=== PATIENT | female | born 1970 | race Caucasian/White ===

== ENCOUNTER 2016-06-16 10:42 | Inpatient (IN) | payer OTHER ==
[~2016-06-16] VITALS: Ht 170.2 cm; Wt 60.0 kg
[2016-06-16] VITALS (28 sets, daily range): BP systolic 79–104; BP diastolic 46–62; PULSE 52–97; RESP 12–21; Ht 170.2 cm; Wt 60.0 kg
[~2016-06-16 10:42] MED LIST: ALBU8.5H3 INH; CARI350T PO; CEFAZOLIN 2 GM/50 ML (PMX) 50 ML IVPB ONE; CIPR500T4 PO; D5-NS + KCL 20 MEQ 1,000 ML IV SCH; GUAI118L94 PO; metroNIDAZOLE 500 MG/NS (PMX) 100 ML IVPB ONE
[2016-06-16] MEDS ORDERED: THROMBIN 5000 UNIT VIAL ONE (13:01)
[2016-06-16] MEDS ORDERED: METHYLENE BLUE 1% 10 ML INJ ONE (13:01)
[2016-06-16] MEDS ORDERED: VASOPRESSIN 20 UNITS INJ ONE (13:01)
[2016-06-16] MEDS ORDERED: METOCLOPRAMIDE 10 MG INJ ONE (13:02)
[2016-06-16] MEDS ORDERED: PROPOFOL 20 ML ONE (13:02)
[2016-06-16] MEDS ORDERED: ROCURONIUM 50 MG INJ ONE ×2 (13:02→14:20)
[2016-06-16] MEDS ORDERED: MIDAZOLAM 1 MG/ML 2 ML INJ ONE (13:02)
--- NOTE | 2016-06-16 13:09 | HP ---
Date/Time of Note Date/Time of Note DATE: 06/16/16 TIME: 13:08 Assessment/Plan VTE Prophylaxis VTE Prophylaxis Intervention: SCD's Lines/Catheters IV C[facility]ter Type (from [facility] Peripheral IV HPI/ROS Admit Date/Time Admit Date/Time June 16, 2016 at 10:42 Hx of Present Illness Austen Chan M.D. [facility] History and Physical Examination Pallavi Hernandez June 13, 2016 Age: 45 : 1970 Physicians: Communication Specialist: Television Mechanic: Oncologist: Other: History of the Present Illness: This is a 45 y/o female with known fibroids that are symptomatic. Past Medical History: Surgical:none Colonoscopy: never Medical:none Flu no, declined, Pneumococcal no, declined Medical:none Medications: 03/31/16 iron,carbonyl 65 mg-vitamin C 125 mg tablet,delayed release 1 tablet by mouth TID Allergies: 03/31/16 No known allergies (situation) Family History: Noncontributory Social History: Noncontributory Review of Systems: Negative except for above noted Physical Examination Vitals (06/13/2016): Weight 134, Height 66, BP 120/62, BMI 21.6. General: Alert. HEENT: Pupils are equal, round, reactive to light and accommodation. Neck: Supple with no masses of lymphadenopathy. Breast: Deferred due to recent examination and responsibility of primary care physician. Chest: Clear to auscultation and percussion with no rales, ronchi, or wheeze. Heart: Normal rhythm with no murmur. Abdomen: NT no mass Pelvis: 14 week antrior uterus, no adnexal masses NT Rectal: confirmatory with pelvic exam. Neurological: Grossly intact Assessment: probable symptomatic fibroids Plan: LSH/BS. All risks and benefits of this procedure have been discussed in detail with the patient, as well as alternative treatment strategies and their implications. The patient is aware that there is some possibility of a blood transfusion and its associated risks and benefits. She wishes to proceed and gives her informed consent. Austen Chan M.D. PMH/Family/Social Social History Smoking Status: Current some day smoker Exam/Review of Systems Vital Signs Vitals Vital Signs Date Time Temp Pulse Resp B/P Pulse Ox O2 Delivery O2 Flow Rate FiO2 06/16/16 11:55 97.6 97 18 99/58 97 Room Air Medications Medications Current Medications Potassium Chloride/Dextrose/ Sod Cl (D5-NS + KCl 20 Meq) 1,000 ml @ 100 mls/hr Q10H IV ; Start 06/16/16 at 10:30; Stop 06/16/16 at 20:29 AUSTEN CHAN MD June 16, 2016 13:09
--- NOTE | 2016-06-16 13:10 | HPN ---
Date/Time of Note Date/Time of Note DATE: 06/16/16 TIME: 13:09 Interval H&P Admission Note Pt. seen H&P reviewed: No system changes SARA KATE MD June 16, 2016 13:10
[2016-06-16] MEDS ORDERED: morphine SULFATE/PF (10 MG/10 ML) INJ ONE (13:17)
[2016-06-16] MEDS ORDERED: KETOROLAC 30 MG INJ IV PRN ×2 (13:30→16:00)
[2016-06-16] MEDS ORDERED: HYDROCODONE/APAP (5/325) TAB PO PRN (13:30)
[2016-06-16] MEDS ORDERED: CEFAZOLIN 1 GM in SOD CHLORIDE 0.9% 100 ML IVPB SCH (13:30)
[2016-06-16] MEDS ORDERED: ONDANSETRON 4 MG INJ IV PRN ×3 (13:30→16:00)
[2016-06-16] MEDS ORDERED: PHENYLephrine (100 MCG/ML) 5ML SYG ONE (13:43)
[2016-06-16] MEDS ORDERED: CEFAZOLIN 1 GM INJ ONE (14:20)
[2016-06-16] MEDS ORDERED: metroNIDAZOLE 500 MG/NS (PMX) 100 ML IVPB ONE (14:20)
[2016-06-16] MEDS ORDERED: DIPHENHYDRAMINE 50 MG INJ IV PRN ×2 (16:00)
[2016-06-16] MEDS ORDERED: HYDROmorphONE (0.2 MG/ML) 10ML SYG IV PRN ×3 (16:00)
[2016-06-16] MEDS ORDERED: HYDROmorphONE 1 MG/ML SYG IV PRN ×2 (16:00)
[2016-06-16] MEDS ORDERED: MEPERIDINE 25 MG INJ IV PRN (16:00)
[2016-06-16] MEDS ORDERED: NALOXONE (0.4 MG/ML) INJ IV PRN (16:00)
[2016-06-16] MEDS ORDERED: METOCLOPRAMIDE 10 MG INJ IV PRN (16:00)
[2016-06-16] MEDS ORDERED: GLYCOPYRROLATE 1 MG INJ ONE (16:08)
[2016-06-16] MEDS ORDERED: NEOSTIGMINE 3 MG/3 ML SYRINGE ONE (16:08)
[2016-06-16] MEDS ORDERED: KETOROLAC 30 MG INJ ONE (16:08)
[2016-06-16] MEDS ORDERED: ONDANSETRON 4 MG INJ ONE (16:21)
[2016-06-16 17:09] LABS: ADD SCAN DIFF NO
[2016-06-16 17:10] LABS: BASOPHIL # 0.1 10^3/ul (0.0-0.1); BASOPHILS % 0.6 % (0.0-2.0); EOSINOPHILS # 0.1 10^3/ul (0.0-0.5); EOSINOPHILS % 0.7 % (0.0-7.0); HEMATOCRIT 30.4 % (37.0-47.0); HEMOGLOBIN 8.9 g/dl (12.0-16.0); LYMPHOCYTES # 2.1 10^3/ul (0.8-2.9); LYMPHOCYTES % 22.4 % (15.0-51.0); MEAN CORPUSCULAR HEMOGLOBIN 22.3 pg (29.0-33.0); MEAN CORPUSCULAR HGB CONC 29.3 g/dl (32.0-37.0); MONOCYTE # 0.7 10^3/ul (0.3-0.9); MONOCYTES % 7.7 % (0.0-11.0); NEUTROPHIL # 6.5 10^3/ul (1.6-7.5); NEUTROPHILS % 68.3 % (39.0-77.0); PLATELET COUNT 397 10^3/UL (140-415); RED CELL DISTRIBUTION WIDTH 21.3 % (11.5-14.5); WHITE BLOOD COUNT 9.5 10^3/ul (4.8-10.8)
[2016-06-16] MEDS: CEFAZOLIN 1 GM/50 ML (PMX) 50 ML IVPB SCH ×2 (17:41→21:32)
[2016-06-16 18:06] LABS: CALCIUM 8.2 mg/dl (8.4-10.2); CREATININE 0.51 mg/dl (0.44-1.00); POTASSIUM 3.3 mmol/L (3.5-5.1)
[2016-06-16 18:47] LABS: URINE BILIRUBIN (Dip) NEGATIVE (NEGATIVE); URINE BLOOD (Dip) NEGATIVE (NEGATIVE); URINE COLOR YELLOW (YELLOW); URINE GLUCOSE (Dip) NEGATIVE (NEGATIVE); URINE KETONES (Dip) 40 (NEGATIVE); URINE LEUKOCYTE ESTERASE (Dip) NEGATIVE (NEGATIVE); URINE NITRITE (Dip) NEGATIVE (NEGATIVE); URINE UROBILINOGEN (Dip) 0.2 E.U./dL (0.1-1.0)
[2016-06-16 19:15] LABS: ADD UMIC NO; SQUAMOUS EPITHELIAL CELL,UR FEW; URINE RBCS 0-2 /HPF (0); URINE TOTAL PROTEIN (Dip) NEGATIVE (NEGATIVE)
[2016-06-16 19:16] LABS: MUCUS,URINE FEW
[2016-06-16] MEDS: FAMOTIDINE 20 MG INJ IV SCH (21:31)
[2016-06-16] MEDS: POTASSIUM CHLORIDE 20 MEQ in LACTATED RINGER'S 1,000 ML IV SCH ×2 (21:32→23:21)
[2016-06-17 00:32] VITALS: BP 114/67; RESP 18
[2016-06-17] MEDS: HYDROmorphONE 1 MG/ML SYG IV PRN ×2 (01:34→08:59)
[2016-06-17] MEDS: CEFAZOLIN 1 GM/50 ML (PMX) 50 ML IVPB SCH (05:23)
[2016-06-17] MEDS: morphine 2 MG INJ IV PRN ×2 (05:46→18:47)
[2016-06-17 06:23] LABS: ADD SCAN DIFF NO
[2016-06-17 06:28] LABS: ABNORMAL IP MESSAGE 1; BASOPHILS % 0.3 % (0.0-2.0); EOSINOPHILS # 0.1 10^3/ul (0.0-0.5); EOSINOPHILS % 0.8 % (0.0-7.0); HEMATOCRIT 31.6 % (37.0-47.0); LYMPHOCYTES # 1.6 10^3/ul (0.8-2.9); LYMPHOCYTES % 16.4 % (15.0-51.0); MEAN CORPUSCULAR HGB CONC 28.5 g/dl (32.0-37.0); MEAN CORPUSCULAR VOLUME 77.1 fl (82.0-101.0); MEAN PLATELET VOLUME 9.7 fl (7.4-10.4); MONOCYTE # 0.7 10^3/ul (0.3-0.9); MONOCYTES % 6.9 % (0.0-11.0); NEUTROPHIL # 7.5 10^3/ul (1.6-7.5); NEUTROPHILS % 75.3 % (39.0-77.0); PLATELET COUNT 396 10^3/UL (140-415); RED CELL DISTRIBUTION WIDTH 21.7 % (11.5-14.5)
[2016-06-17 07:05] LABS: ALBUMIN 2.9 g/dl (3.3-4.9)
[2016-06-17 07:06] LABS: POTASSIUM 3.6 mmol/L (3.5-5.1)
[2016-06-17 07:08] LABS: BILIRUBIN,INDIRECT 0.3 mg/dl (0-1.1); BILIRUBIN,TOTAL 0.3 mg/dl (0.2-1.3); CREATININE 0.55 mg/dl (0.44-1.00)
[2016-06-17 07:09] LABS: ALBUMIN/GLOBULIN RATIO 1.07; CALCIUM 8.4 mg/dl (8.4-10.2); TOTAL PROTEIN 5.6 g/dl (6.1-8.1)
[2016-06-17 07:20] LABS: INR 1.06; PROTIME 13.8 Sec (12.2-14.2); PT RATIO 1.1
[2016-06-17 07:53] VITALS: BP 111/66; RESP 18
[2016-06-17] MEDS: FAMOTIDINE 20 MG INJ IV SCH ×2 (08:58→20:52)
[2016-06-17] MEDS: POTASSIUM CHLORIDE 20 MEQ in LACTATED RINGER'S 1,000 ML IV SCH ×2 (08:58→20:52)
--- NOTE | 2016-06-17 10:57 | PN ---
Date/Time of Note Date/Time of Note DATE: 06/17/16 TIME: 10:55 Assessment/Plan VTE Prophylaxis VTE Prophylaxis Intervention: ambulation Lines/Catheters IV Catheter Type (from Nrsg): Peripheral IV Urinary Cath still in place: Yes Subjective 24 Hr Interval Summary Free Text/Dictation Anesthesia Note: A 45 year female s/p lap hysterectomy under GA and spinal, pod #1 doing fine pain is controled, no n/v, itching,headache, back pain, back is clen Exam/Review of Systems Vital Signs Vitals Vital Signs Date Time Temp Pulse Resp B/P Pulse Ox O2 Delivery O2 Flow Rate FiO2 06/17/16 07:53 98.7 60 18 111/66 99 06/16/16 18:50 Nasal Cannula Intake and Output 06/16/16 06/16/16 06/17/16 15:00 23:00 07:00 Intake Total 1850 ml 1150 ml Output Total 550 ml 250 ml Balance 1300 ml 900 ml Results Result Diagram: 06/17/16 0535 06/17/16 0535 Results 24 hrs Laboratory Tests Test 06/16/16 17:04 06/16/16 18:20 06/17/16 05:35 White Blood Count 9.5 10.0 Red Blood Count 4.00 L 4.10 L Hemoglobin 8.9 L 9.0 L Hematocrit 30.4 L 31.6 L Mean Corpuscular Volume 76.0 L 77.1 L Mean Corpuscular Hemoglobin 22.3 L 22.0 L Mean Corpuscular Hemoglobin Concent 29.3 L 28.5 L Red Cell Distribution Width 21.3 H 21.7 H Platelet Count 397 396 Mean Platelet Volume 9.0 9.7 Neutrophils % 68.3 75.3 Lymphocytes % 22.4 16.4 Monocytes % 7.7 6.9 Eosinophils % 0.7 0.8 Basophils % 0.6 0.3 Nucleated Red Blood Cells % 0.0 0.0 Neutrophils # 6.5 7.5 Lymphocytes # 2.1 1.6 Monocytes # 0.7 0.7 Eosinophils # 0.1 0.1 Basophils # 0.1 0.0 Nucleated Red Blood Cells # 0.0 0.0 Sodium Level 135 139 Potassium Level 3.3 L 3.6 Chloride Level 107 105 Carbon Dioxide Level 23 25 Anion Gap 8 13 Blood Urea Nitrogen 11 10 Creatinine 0.51 0.55 Glucose Level 99 85 Calcium Level 8.2 L 8.4 Urine Color YELLOW Urine Clarity CLEAR Urine pH 5.5 Urine Specific [place] >=1.030 H Urine Ketones 40 Urine Nitrite NEGATIVE Urine Bilirubin NEGATIVE Urine Urobilinogen 0.2 E.U./dL Urine Leukocyte Esterase NEGATIVE Urine Microscopic RBC 0-2 Urine Microscopic WBC 0-2 Urine Squamous Epithelial Cells FEW Urine Mucus FEW Urine Hemoglobin NEGATIVE Urine Glucose NEGATIVE Urine Total Protein NEGATIVE Prothrombin Time 13.8 Prothrombin Time Ratio 1.1 INR International Normalized Ratio 1.06 Total Bilirubin 0.3 Direct Bilirubin 0.00 Indirect Bilirubin 0.3 Aspartate Amino Transf (AST/SGOT) 20 Alanine Aminotransferase (ALT/SGPT) 23 Alkaline Phosphatase 48 Total Protein 5.6 L Albumin 2.9 L Globulin 2.70 Albumin/Globulin Ratio 1.07 Medications Medications Current Medications Acetaminophen/ Hydrocodone Bitart ([place] (5/325)) 1 tab Q6H PRN PO PAIN LEVEL 6 -10; Start 06/16/16 at 13:30 Famotidine 20 mg 20 mg Q12 IV Last administered on 06/17/16 08:58; Admin Dose 20 MG; Start 06/16/16 at 21:00 Potassium Chloride/Lactated Ringer's (KCl/Lr) 1,010 ml @ 100 mls/hr Q10H6M IV Last administered on 06/17/16 08:58; Admin Dose 100 MLS/HR; Start 06/16/16 at 13: 15 Naloxone HCl (Narcan) 0.1 mg Q2M PRN IV FOR RESP RATE 8 OR LESS; Start 06/16/16 at 16:00; Stop 06/17/16 at 15:59 Ketorolac Tromethamine (Toradol) 30 mg Q6H PRN IV PAIN; Start 06/16/16 at 16:00 ; Stop 06/17/16 at 15:59 Hydromorphone HCl (Dilaudid) 1 mg Q3H PRN IV BREAKTHROUGH PAIN Last administered on 06/17/16 08:59; Admin Dose 1 MG; Start 06/16/16 at 16:00; Stop at 15:59 Hydromorphone HCl (Dilaudid) 0.2 mg Q3H PRN IV PAIN LEVEL 1-5; Start 06/16/16 at 16:00; Stop 06/17/16 at 15:59 Hydromorphone HCl (Dilaudid) 0.4 mg Q3H PRN IV PAIN LEVEL 6-10; Start 06/16/16 at 16:00; Stop 06/17/16 at 15:59 Diphenhydramine HCl (Benadryl) 25 mg Q6H PRN IV ITCHING; Start 06/16/16 at 16:00 ; Stop 06/17/16 at 15:59 Ondansetron HCl (Zofran Inj) 4 mg Q6H PRN IV NAUSEA AND/OR VOMITING Last administered on 06/17/16t 05:46; Admin Dose 4 MG; Start 06/16/16 at 16:00; Stop at 15:59 ERWIN GRIFFIN MD June 17, 2016 10:57
[2016-06-17] MEDS: LORAZEPAM 0.5 MG TAB PO PRN (13:45)
[2016-06-17] MEDS: KETOROLAC 15 MG INJ IV PRN ×2 (13:46→20:52)
--- NOTE | 2016-06-17 15:37 | CONS ---
DATE OF ADMISSION: 06/16/2016 DATE OF CONSULTATION: HISTORY OF PRESENT ILLNESS: The patient is a 45-year-old female with history of symptomatic uterine fibroid and chronic lower back pain. The patient was taking [place] and [place] for her back pain. The patient has not had any surgical intervention for her back pain. The patient was seen by Dr. Richard foley as an outpatient for symptomatic fibroid. The patient was brought into hospital on 06/16/2016 a nd underwent laparoscopic hysterectomy and bilateral salpingectomy. The patient, postoperatively, w as complaining of headache as well as becoming emotional after surgery. The patient is fearful when ever she wakes up. The patient denied any previous known history of psychiatric disorder. No repor sabi fever or chills. No reported chest pain or shortness of breath. The patient did not have any v omiting. No focal neurological symptoms. The patient did have postoperative pain. REVIEW OF SYSTEMS: The rest of review of systems was unremarkable. PAST MEDICAL HISTORY: As stated above. ALLERGIES: NONE. SOCIAL HISTORY: The patient smokes a pack a day. FAMILY HISTORY: Noncontributory. PHYSICAL EXAMINATION: GENERAL: The patient is conscious, awake, alert. VITAL SIGNS: Temperature 98.7, pulse 60, respirations 18, blood pressure 111/66, O2 saturation 99% on room air. HEENT: Atraumatic, normocephalic. Conjunctivae and lids normal. Oropharynx clear. NECK: No mass. LUNGS: Clear. CARDIOVASCULAR: S1, S2 normal. No murmur. ABDOMEN: Soft. EXTREMITIES: No leg edema. Pedal pulses palpable. SKIN: Without rash. NEUROLOGIC: The patient is awake, alert with no gross focal deficit. LABORATORY DATA: On the day of admission, WBC 9.5, hemoglobin 8.9, platelets 397. Sodium 139, pota ssium 3.6, BUN 10, creatinine 8.5. Liver enzymes normal. IMPRESSION: 1. Symptomatic uterine fibroids status post laparoscopic hysterectomy and bilateral salpingectomy. 2. Chronic lower back pain. 3. Situational anxiety. PLAN: The patient admitted on medical floor. The patient has been started on clear liquid diet whi ch has been advanced to full liquid. I will give her IV Toradol for her headache. The patient norm ally drinks 2 to 3 cups of coffee a day and probably has headache due to caffeine withdrawal. The p atient also has situational anxiety. We will treat her with Ativan on p.r.n. basis. We will contin ue SCDs for DVT prophylaxis. The patient does have anemia. We will add iron. Further recommendati ons will depend on patient's hospital course and recommendation from Dr. Chan. We will continue to follow. Dictated By: TO DÍAZ/ERNIE Conf#: [id number] DID#: [id number]
[2016-06-17 20:00] VITALS: BP 118/75; RESP 20
--- NOTE | 2016-06-17 21:46 | OPR ---
Date/Time of Note Date/Time of Note DATE: 06/17/16 TIME: 21:45 Operative Report Free Text/Dictation 4 OPERATIVE REPORT [facility] Name: Pallavi Hernandez Medical Date: 06/16/16 Preoperative Diagnosis: Menorrhagia with uterine enlargement; fibroids a/o adenomyosis Postoperative Diagnosis: 1- Probable adenomyosis 2- Multiple fibroids 3- Ureteral stricture 4- Endometriosis Procedures: 1- Laparoscopic subtotal hysterectomy and bilateral salpingectomy 2- Bilateral ureteral dissection with repositioning 3- Retroperitoneal uterine artery ligation Surgeon: Dr. Chan Clerical Aide Teacher: Dr. Kyle Anesthesia: General with regional Indikation for Procedure: The patient is a 45- year old female with a large symptomatic pelvic mass consistent with symptomatic fibroids and/or adenomyosis. After considering all options with risks and benefits a laproscopic supracervical hysterectomy with bilateral salpingectomy and possible total laparoscopic hysterectomy was chosen with possible staging. Findings and Summary The patient was laparoscoped and found to have a large hypervascular fibroids that were distorting the retroperitoneal anatomy significantly with anatomy precluding access to the lower uterine segment vessels. Therefore it was necessary to open the Name: Pallavi Hernandez Medical retroperitoneum bilaterally and dissect and reposition the ureters bilaterally for the purposes of access to the lower uterine segment and the vasculature. Due to additional anatomic distortion by the enlarged uterus and hypervascularity and aforementioned anatomy precluding access to the lower uterine segment vessels the uterine arteries were clipped bilaterally immediately distal to the branching of the hypogastrics. Additionally cul-de- sac endometriosis was ablated and biopsied The laparoscopic supracervical hysterectomy was then completed with morcellation without incident thru a minilaparotomy. Procedure: After being prepped and draped in the usual manner an EEA sizer and pneumo- occluder was inserted vaginally. A 5-millimeter trocar was then placed immediately cephlad to the umbilicus without incident. Subsequently, we insufflated and placed two 5 millimeter trocars laterally and a 12 millimeter trocar suprapubically. At this time any pelvic adhesions were lysed with sharp dissection. Subsequently we explored and noted the adnexia to be grossly within normal limits in appearance but there was significant uterine enlargement from probable fibroids and adenomyosis and hypervascularity, all distorting the retroperitoneal anatomy significantly, about 14-16 week in size, all necessitating a ureteral dissection with repositioning. Initially the right round ligament was transected with the Gyrus biopolar Cutting Forceps and the retroperitoneal spaced opened parallel to the IP ligament and laterally with the same devise and Omni. The ureter was identified and because of the fibroids and some adjacent endometriois required a specific dissection and repositioning. The ureter was bluntly dissected away from the enlarged uterus and broad ligament with an Omni, and carefully repositioned lateral to the broad ligament. Additionally, there was broad ligament endometriosis that mandated additional ureteral dissection with repositioning away from the endometriosis, after which some was biopsied with sharp dissection and the remainder of the lesion was ablated with the argon beam tallow refiner. Because of some oozing and because the anatomy of the uterus with anatomy precluding access to Name: Pallavi [facility] the lower uterine segment vessels due to fibroids and resulting in displacement of the vessels laterally it mandated that we isolate the uterine artery and vein adjacent to the ureter that was lateralized to the level of the hypogastric artery using the endo-dissector and Omni for hemostasis with the previously dissected ureter visualized. Therefore in this case the uterine artery was hemoclipped immediately distal to the branching of the hypogastric and at the bifurcation of the hypogastric, proximal to the branching of the uterine and obliterated umbilical; salvaging both observed superior and inferior vesicle while controlling the entire uterine with associated collateral branches. At this time the right salpingectomy was completed with the Omni to removed the tube from the mesentery after which the right triple pedicle was desiccated and transected with the Omni and Thunderbeat. Subsequently, the left round ligament was transected with a Gyrus bipolar cutting forceps and the retroperitoneum opened parallel to the infundibulo- pelvic (IP) ligament with a Gyrus bipolar cutting forceps and Omni. The ureteral dissection with repositioning was undertaken. The ureter was dissected away from the peritoneum with adjacent uterus and repositioned with care using the endo-dissector and Gyrus bipolar cutting forceps and Omni bluntly, again with the dissection being somewhat required due to some distortion of the retroperitoneum by the large uterus with fibroids. This process was carried out throughout the ureteral length in the pelvis and it peristalsed normally once repositioned. Again, because of hypervascularity and because the anatomy of the mass resulted in displacement of the vessels laterally with anatomy precluding access to the lower uterine segment vessels, it mandated that we isolate the uterine artery and vein adjacent to the ureter that was lateralized to the level of the hypogastric artery using the endo-dissector and Omni for hemostasis with the previously dissected ureter visualized. Therefore in this case the uterine artery was hemoclipped immediately distal to the branching of the hypogastric and at the bifurcation of the hypogastric, proximal to the branching of the uterine and obliterated umbilical; salvaging both observed superior and inferior vesicle while controlling the entire uterine with associated collateral branches. At this time the left fallopian tube was removed from the associate mesentery with the Thunderbeat and the triple pedicle Name: Pallavi [facility] was desiccated and transected with the Thunderbeat. At this time a corkscrew was placed in the aforementioned fibroids and the mass dissected away from the areolar tissue and ureter as well as vascular structures in the retroperitoneum with the endo-dissector and Omni in not near thermal sensitive structures. We then used a cork screw manipulator placed through the 12-mm suprapubic trocar to manipulate the uterus allowing development or the bladder flap uneventfully with the Gyrus Cutting Forceps and Omni and blunt dissection. The right uterine artery was transected with a Thunderbeat perpendicular to the distal lower uterine segment and the Cardinal ligament and utero-sacral ligament were both transected with a Thunderbeat parallel to the lower uterine segment and cervix via the contralateral trocar site. An identical series of steps were taken on the left side. Hence, the uterus was removed from the cervix with the Thunderbeat and hemostasis confirmed with additional hemostasis accomplished with the argon ochoa tallow refiner and Omni. The cervix and the endocervical canal were thoroughly ablated with the argon beam tallow refiner. The uterus was then removed with the uterine morcellator. After irrigating and assuring hemostasis the 12 millimeter trocar was removed and the fascia was closed with 0-vicryl using an endo-close devise. The 12-millimeter trocar site was minimally extended to 3-4 cm midline to a minilaparotomy with sharp dissection and an electrocautery and uterus was then placed in large sac and removed with the tubes removed separately, with all tissue accounted for. The incision was partly closed with interrupted 0- Vicryl suture, after which the 12 -millimeter trocar was reinserted. With irrigation hemostasis was confirmed and gas was removed and the 12-millimeter trocar was closed with 0- Vicryl suture with the endo-close and the deep layer of skin with interrupted 3-0 Vicryl suture. The skin of all sites then closed with 4-0 Monocryl suture subcutaneously. The EBL was 50- cc and the patient tolerated the procedure well and left the OR in good condition. Austen Chan M.D. AUSTEN CHAN MD June 17, 2016 21:46
--- NOTE | 2016-06-17 21:52 | PN ---
Date/Time of Note Date/Time of Note DATE: 06/17/16 TIME: 21:49 Assessment/Plan VTE Prophylaxis VTE Prophylaxis Intervention: ambulation, anti-embolic stocking, SCD's Lines/Catheters IV Catheter Type (from Nrs): Peripheral IV Urinary Cath still in place: No Assessment/Plan Chief Complaint/Hosp Course Fibroids, adenomyosis and endometriosis Problems: Assessment/Plan OOB and reassured patient emotionally. Anticipate d/c later today or a.m. Subjective 24 Hr Interval Summary Free Text/Dictation OOB and kaylee diet but anxious; very anxious. Exam/Review of Systems Vital Signs Vitals Vital Signs Date Time Temp Pulse Resp B/P Pulse Ox O2 Delivery O2 Flow Rate FiO2 06/17/16 20:00 98.6 91 20 118/75 98 06/16/16 18:50 Nasal Cannula Intake and Output 06/16/16 06/16/16 06/17/16 15:00 23:00 07:00 Intake Total 1850 ml 1150 ml Output Total 550 ml 250 ml Balance 1300 ml 900 ml Exam Respiratory: clear to auscultation, normal air movement Cardiovascular: nl pulses, regular rate and rhythm Extremities: normal pulses Results Result Diagram: 06/17/16 0535 06/17/16 0535 Results 24 hrs Laboratory Tests Test 06/17/16 05:35 White Blood Count 10.0 Red Blood Count 4.10 L Hemoglobin 9.0 L Hematocrit 31.6 L Mean Corpuscular Volume 77.1 L Mean Corpuscular Hemoglobin 22.0 L Mean Corpuscular Hemoglobin Concent 28.5 L Red Cell Distribution Width 21.7 H Platelet Count 396 Mean Platelet Volume 9.7 Neutrophils % 75.3 Lymphocytes % 16.4 Monocytes % 6.9 Eosinophils % 0.8 Basophils % 0.3 Nucleated Red Blood Cells % 0.0 Neutrophils # 7.5 Lymphocytes # 1.6 Monocytes # 0.7 Eosinophils # 0.1 Basophils # 0.0 Nucleated Red Blood Cells # 0.0 Prothrombin Time 13.8 Prothrombin Time Ratio 1.1 INR International Normalized Ratio 1.06 Sodium Level 139 Potassium Level 3.6 Chloride Level 105 Carbon Dioxide Level 25 Anion Gap 13 Blood Urea Nitrogen 10 Creatinine 0.55 Glucose Level 85 Calcium Level 8.4 Total Bilirubin 0.3 Direct Bilirubin 0.00 Indirect Bilirubin 0.3 Aspartate Amino Transf (AST/SGOT) 20 Alanine Aminotransferase (ALT/SGPT) 23 Alkaline Phosphatase 48 Total Protein 5.6 L Albumin 2.9 L Globulin 2.70 Albumin/Globulin Ratio 1.07 Medications Medications Current Medications Acetaminophen/ Hydrocodone Bitart ([place] (5/325)) 1 tab Q6H PRN PO PAIN LEVEL 6 -10; Start 06/16/16 at 13:30 Famotidine 20 mg 20 mg Q12 IV Last administered on 06/17/16 20:52; Admin Dose 20 MG; Start 06/16/16 at 21:00 Potassium Chloride/Lactated Ringer's (KCl/Lr) 1,010 ml @ 100 mls/hr Q10H6M IV Last administered on 06/17/16 20:52; Admin Dose 100 MLS/HR; Start 06/16/16 at 13: 15 Lorazepam (Ativan) 0.5 mg Q8H PRN PO ANXIETY Last administered on 06/17/16 13: 45; Admin Dose 0.5 MG; Start 06/17/16 at 14:00 Ketorolac Tromethamine (Toradol) 15 mg Q6H PRN IV PAIN Last administered on 06/17 20:52; Admin Dose 15 MG; Start 06/17/16 at 14:00; Stop 06/20/16 at 13:59 SARA KATE MD June 17, 2016 21:52
[2016-06-18] MEDS: morphine 2 MG INJ IV PRN ×2 (00:48→04:38)
[2016-06-18] MEDS: LORAZEPAM 0.5 MG TAB PO PRN (06:45)
[2016-06-18 07:48] VITALS: BP 114/69; RESP 18
[2016-06-18 09:26] LABS: ADD UMIC NO; URINE BILIRUBIN (Dip) NEGATIVE (NEGATIVE); URINE BLOOD (Dip) NEGATIVE (NEGATIVE); URINE COLOR LT. YELLOW (YELLOW); URINE GLUCOSE (Dip) NEGATIVE (NEGATIVE); URINE KETONES (Dip) NEGATIVE (NEGATIVE); URINE LEUKOCYTE ESTERASE (Dip) NEGATIVE (NEGATIVE); URINE NITRITE (Dip) NEGATIVE (NEGATIVE); URINE TOTAL PROTEIN (Dip) NEGATIVE (NEGATIVE); URINE UROBILINOGEN (Dip) 0.2 E.U./dL (0.1-1.0)
--- NOTE | 2016-06-18 10:28 | PN ---
Date/Time of Note Date/Time of Note DATE: 06/18/16 TIME: 10:23 Assessment/Plan VTE Prophylaxis VTE Prophylaxis Intervention: SCD's Lines/Catheters IV Catheter Type (from Nrs): Peripheral IV Urinary Cath still in place: No Assessment/Plan Assessment/Plan 1. Symptomatic uterine fibroids status post laparoscopic hysterectomy and bilateral salpingectomy. - per surgery - full liquid 2. Chronic lower back pain. 3. Situational anxiety-Ativan on p.r.n. basis. 4. Anemia - cont on iron. H/H- 9.0/31.6 4. SCDs for DVT prophylaxis. Further recommendations will depend on patient's hospital course and recommendation from Dr. Chan. Continue to follow. Plan of care dw dr Salazar/staff Subjective 24 Hr Interval Summary Free Text/Dictation sleeping, easily awakens, afebrile, uses pain med frequently, feels better, dw staff Eyes: no complaints ENT: no complaints Respiratory: no complaints Cardiovascular: no complaints Gastrointestinal: no complaints Genitourinary: other (POST OP PAIN) Musculoskeletal: no complaints Skin: no complaints Neurologic: no complaints Psychological: no complaints Immunologic: no complaints Exam/Review of Systems Vital Signs Vitals Vital Signs Date Time Temp Pulse Resp B/P Pulse Ox O2 Delivery O2 Flow Rate FiO2 06/18/16 07:48 98.6 94 18 114/69 96 06/16/16 18:50 Nasal Cannula Intake and Output 06/17/16 06/17/16 06/18/16 15:00 23:00 07:00 Intake Total 310 ml 1970 ml 900 ml Output Total 1600 ml 1900 ml Balance 310 ml 370 ml -1000 ml Exam Constitutional: alert, oriented, well developed Psych: no complaints Head: atraumatic Eyes: EOMI, nl sclera ENMT: nl external ears & nose Neck: non-tender Respiratory: clear to auscultation Cardiovascular: nl pulses Gastrointestinal: non-tender, soft Musculoskeletal: nl extremities to inspection Extremities: normal pulses Neurological: nl mental status, nl speech Skin: other Lymph: nontender Results Result Diagram: 06/17/16 0535 06/17/16 0535 Results 24 hrs Laboratory Tests Test 06/18/16 04:00 Urine Color LT. YELLOW Urine Clarity CLEAR Urine pH 7.0 Urine Specific [place] <=1.005 L Urine Ketones NEGATIVE Urine Nitrite NEGATIVE Urine Bilirubin NEGATIVE Urine Urobilinogen 0.2 E.U./dL Urine Leukocyte Esterase NEGATIVE Urine Hemoglobin NEGATIVE Urine Glucose NEGATIVE Urine Total Protein NEGATIVE Medications Medications Current Medications Acetaminophen/ Hydrocodone Bitart ([place] (5)) 1 tab Q6H PRN PO PAIN LEVEL 6 -10 Last administered on 06/18/16 05:39; Admin Dose 1 TAB; Start 06/16/16 at 13: 30 Famotidine 20 mg 20 mg Q12 IV Last administered on 06/17/16 20:52; Admin Dose 20 MG; Start 06/16/16 at 21:00 Potassium Chloride/Lactated Ringer's (KCl/Lr) 1,010 ml @ 20 mls/hr Q24H IV Last administered on 06/17/16 20:52; Admin Dose 100 MLS/HR; Start 06/16/16 at 13: 15 Lorazepam (Ativan) 0.5 mg Q8H PRN PO ANXIETY Last administered on 06/18/16 06: 45; Admin Dose 0.5 MG; Start 06/17/16 at 14:00 Ketorolac Tromethamine (Toradol) 15 mg Q6H PRN IV PAIN Last administered on 06/17 20:52; Admin Dose 15 MG; Start 06/17/16 at 14:00; Stop 06/20/16 at 13:59 DARION MACK June 18, 2016 10:28
[2016-06-18] MEDS: FAMOTIDINE 20 MG INJ IV SCH (10:41)
[2016-06-18] MEDS ORDERED: DOCUSATE SODIUM 100 MG CAP PO SCH (11:30)
--- NOTE | 2016-06-18 13:58 | PDOCDIS ---
Discharge Instructions CONDITION Patient Condition: Stable HOME CARE INSTRUCTIONS: [facility] FOLLOW UP/APPOINTMENTS Appointments FU with PMD X [address] Galvin as recommended. call 911 or go to the nearest hospital if symptoms get worse. DARION MACK June 18, 2016 13:58
--- NOTE | 2016-06-18 14:07 | DS ---
Date/Time of Note Date/Time of Note DATE: 06/18/16 TIME: 14:07 Discharge Summary Admission/Discharge Info Admit Date/Time June 16, 2016 at 10:42 Discharge Date/Time Hx of Present Illness Austen Chan M.D. [facility] History and Physical Examination Pallavi Hernandez June 13, 2016 Age: 45 : 1970 Physicians: Community Service Coordinator: Repossession Agent: Oncologist: Other: History of the Present Illness: This is a 45 y/o female with known fibroids that are symptomatic. Past Medical History: Surgical:none Colonoscopy: never Medical:none Flu no, declined, Pneumococcal no, declined Medical:none Medications: 03/31/16 iron,carbonyl 65 mg-vitamin C 125 mg tablet,delayed release 1 tablet by mouth TID Allergies: 03/31/16 No known allergies (situation) Family History: Noncontributory Social History: Noncontributory Review of Systems: Negative except for above noted Physical Examination Vitals (06/13/2016): Weight 134, Height 66, BP 120/62, BMI 21.6. General: Alert. HEENT: Pupils are equal, round, reactive to light and accommodation. Neck: Supple with no masses of lymphadenopathy. Breast: Deferred due to recent examination and responsibility of primary care physician. Chest: Clear to auscultation and percussion with no rales, ronchi, or wheeze. Heart: Normal rhythm with no murmur. Abdomen: NT no mass Pelvis: 14 week antrior uterus, no adnexal masses NT Rectal: confirmatory with pelvic exam. Neurological: Grossly intact Assessment: probable symptomatic fibroids Plan: LSH/BS. All risks and benefits of this procedure have been discussed in detail with the patient, as well as alternative treatment strategies and their implications. The patient is aware that there is some possibility of a blood transfusion and its associated risks and benefits. She wishes to proceed and gives her informed consent. Austen Chan M.D. Hospital Course Fibroids, adenomyosis and endometriosis Home Meds Active Scripts Ciprofloxacin Hcl* (Ciprofloxacin Hcl*) 500 Mg Tablet, 500 MG PO BID for 7 Days , TAB Prov:LANDY HO NP 4/20/16 Guaifenesin-Codeine Phosphate* (Guaifenesin* with Codeine Liq) 120 Ml Liquid, 5 ML PO Q4H for COUGH, #60 ML Prov:LANDY HO FREELANCE COURT REPORTER 06/03/15 Albuterol Sulfate* (Proair HFA*) 8.5 Gm Hfa.aer.ad, 2 PUFF INH Q4H Y for WHEEZING AND SOB, #1 INHALER Prov:LANDY HO FREELANCE COURT REPORTER 06/03/15 Reported Medications Carisoprodol* (Soma*) Unknown Strength Tablet, PO TID Y for MUSCLE SPASMS, #15 TAB 06/03/15 Pending Labs Laboratory Tests Test 06/18/16 04:00 Urine Color LT. YELLOW (YELLOW) Urine Clarity CLEAR (CLEAR) Urine pH 7.0 (5.0-9.0) Urine Specific Luke <=1.005 (1.003-1.030) Urine Ketones NEGATIVE (NEGATIVE) Urine Nitrite NEGATIVE (NEGATIVE) Urine Bilirubin NEGATIVE (NEGATIVE) Urine Urobilinogen 0.2 E.U./dL (0.1-1.0) Urine Leukocyte Esterase NEGATIVE (NEGATIVE) Urine Hemoglobin NEGATIVE (NEGATIVE) Urine Glucose NEGATIVE% (NEGATIVE) Urine Total Protein NEGATIVE (NEGATIVE) DARION MACK June 18, 2016 14:07
== END 2016-06-18 14:35 | disposition home or self-care (01) | DRG 743 ==
LOC: REC 10:42 → MS2 19:00
PROC: 0UT74ZZ Resection of Bilateral Fallopian Tubes, Percutaneous Endoscopic Approach (ICD-10-PCS; 2016-06-16)
PROC: 0TS84ZZ Reposition Bilateral Ureters, Percutaneous Endoscopic Approach (ICD-10-PCS; 2016-06-16)
PROC: 0UT94ZZ Resection of Uterus, Percutaneous Endoscopic Approach (ICD-10-PCS; principal; 2016-06-16 12:30)
DX: D25.9 Leiomyoma of uterus, unspecified (principal); N13.5 Crossing vessel and stricture of ureter without hydronephrosis; M54.5 Low back pain; G89.29 Other chronic pain; F41.8 Other specified anxiety disorders; N92.0 Excessive and frequent menstruation with regular cycle; N80.0 Endometriosis of uterus; D64.9 Anemia, unspecified
CPT/HCPCS: 80048; 80053; 81001; 81003; 85025; 85610; 86850; 86900; 86901; 86920; 87086; 88305; J0690; J1170; J1644; J1885; J2175; J2250; J2270; J2274; J2370; J2405; J2710; J2765; J3480; J7120

== ENCOUNTER 2017-02-26 21:23 | Emergency (ER) | END 2017-02-26 22:02 | disposition left against medical advice (07) ==